=== PATIENT | male | born 1995 | race African-American/Black ===

== ENCOUNTER → 2017-02-16 | Outpatient (CLI) | payer OTHER ==
[2017-02-16 11:53] LABS: EKG EKG PERFORMED
--- NOTE | 2017-02-16 12:03 | XR ---
EXAMINATION TYPE: XR chest 2V DATE OF EXAM: 02/16/2017 COMPARISON: NONE INDICATION: Chest pain TECHNIQUE: Frontal and lateral views of the chest are obtained. FINDINGS: The heart size is normal. The pulmonary vasculature is normal. The lungs are clear. IMPRESSION: 1. No acute pulmonary process.
[2017-02-16 12:07] LABS: Basophils % (A) 1 %; CHCM 34.6; Eosinophils # (A) 0.1 k/uL (0-0.7); Eosinophils % (A) 4 %; HCT 43.4 % (39.0-53.0); HDW 2.53; HGB 15.1 gm/dL (13.0-17.5); Luc % (Auto) 3; Lymphocytes # (A) 1.4 k/uL (1.0-4.8); Lymphocytes % (A) 41 %; MCH 31.1 pg (25.0-35.0); MCHC 34.7 g/dL (31.0-37.0); MCV 89.7 fL (80.0-100.0); Mean Platelet Volume 7.8; Monocytes # (A) 0.2 k/uL (0-1.0); Monocytes % (A) 6 %; Neutrophils # (A) 1.5 k/uL (1.3-7.7); Neutrophils % (A) 46 %; RBC 4.84 m/uL (4.30-5.90); RDW 12.7 % (11.5-15.5); WBC 3.3 k/uL (4.0-11.0); WBC (Perox) 3.31
[2017-02-16 12:20] LABS: ALT 46 U/L (21-72); AST 31 U/L (17-59); Alkaline Phosphatase 82 U/L (38-126); Anion Gap 12 mmol/L; Blood Urea Nitrogen 15 mg/dL (9-20); Calcium 9.9 mg/dL (8.4-10.2); Carbon Dioxide 28 mmol/L (22-30); Chloride 103 mmol/L (98-107); Glucose 90 mg/dL (74-99); Non-African American GFR(MDRD) >60 (>60 ml/min/1.73 sqM); Potassium 3.9 mmol/L (3.5-5.1); Sodium 143 mmol/L (137-145); Total Bilirubin 0.7 mg/dL (0.2-1.3); Total Protein 7.9 g/dL (6.3-8.2)
[2017-02-16 18:03] LABS: Egg White IgE <0.10 kU/L; Peanut IgE 0.53 kU/L; Soybean IgE 0.36 kU/L
[2017-02-16 19:34] LABS: Alternaria alternata IgE <0.10 kU/L; Aspergillus fumagatus IgE <0.10 kU/L; Cladosporian herbarum IgE <0.10 kU/L; Maple (Box Elder) IgE 0.74 kU/L; Orchard Grs(Cocksfoot) IgE 9.44 kU/L
[2017-02-20 06:19] LABS: EBV - EA (IgG) 5.5 U/mL (<9.0); EBV - EBNA (IgG) >600.0 U/mL (<18.0); EBV - VCA (IgG) >750.0 U/mL (<18.0); EBV - VCA IgM <10.0 U/mL (<36.0)
[2017-02-20 08:42] LABS: Strep DNASE B Antibody <86 U/mL (0-260)
== END | disposition home or self-care (01) ==
LOC: LABWHC1 11:34
PROVIDERS: ATTEND Pediatrics Adolescent Medicine
DX: J02.9 Acute pharyngitis, unspecified (principal); R07.1 Chest pain on breathing; R53.83 Other fatigue
CPT/HCPCS: 36415; 71020; 80053; 82785; 85025; 86003; 86060; 86215; 86308; 86663; 86664; 86665; 93005

== ENCOUNTER 2018-02-22 14:40 | Emergency (ER) | payer OTHER ==
--- NOTE | 2018-02-22 15:47 | ED ---
Male Urogenital HPI - General Chief complaint: Urogenital Stated complaint: Testicular pain/CP Time Seen by Provider: 02/22/18 15:05 Source: patient Mode of arrival: ambulatory Limitations: no limitations - History of Present Illness Initial comments: Patient is a 22-year-old male presenting for chest pain and left testicular pain. Patient states that he has been having the chest pain for many weeks and is described as a left-sided sharp pain without radiation. He was supposed to see cardiology but could not do so because of logistical reasons.Pt also denies any prolonged periods of immobility, CA, DVT/PE, estrogen use, or recent surgery. He also admits to left-sided testicular pain for a couple days. He also states that he is sexually active but denies any penile discharge. - Related Data Previous Rx's Medication Instructions Recorded Doxycycline Monohydrate [Monodox] 100 mg PO Q12HR 10 Days #20 cap 02/22/18 Ibuprofen [Motrin] 400 mg PO Q6HR PRN #20 tab 02/22/18 Allergies Allergy/AdvReac Type Severity Reaction Status Date / Time No Known Allergies Allergy Verified 02/22/18 14:56 Review of Systems ROS Statement: Those systems with pertinent positive or pertinent negative responses have been documented in the HPI. Constitutional: Negative for chills, fatigue and fever. HENT: Negative for congestion. Respiratory: Negative for chest tightness, shortness of breath and wheezing. Negative for cough Cardiovascular: Positive for chest pain and negative palpitations. Gastrointestinal: Negative for abdominal pain. Negative for abdominal distention , diarrhea, nausea and vomiting. Genitourinary: Negative for dysuria. Positive for left testicular pain Musculoskeletal: Negative for back pain, neck pain and neck stiffness. Skin: Negative for color change. Neurological: Negative for dizziness, speech difficulty, weakness and light- headedness. Psychiatric/Behavioral: Negative for agitation and confusion. Negative for anxiety ROS Other: All systems not noted in ROS Statement are negative. Past Medical History Past Medical History: No Reported History History of Any Multi-Drug Resistant Organisms: None Reported Past Surgical History: No Surgical Hx Reported Past Psychological History: No Psychological Hx Reported Smoking Status: Current every day smoker Past Alcohol Use History: None Reported Past Drug Use History: None Reported General Exam - General Exam Comments Initial Comments: Constitutional: Pt is oriented to person, place, and time. Pt appears well- developed and well-nourished. No distress. HENT: Head: Normocephalic and atraumatic. Eyes: EOM are normal. Neck: Normal range of motion. Neck supple. Cardiovascular: Normal rate, regular rhythm, S1 normal, S2 normal and normal heart sounds. Exam reveals no gallop and no friction rub. No murmur heard. Pulmonary/Chest: Effort normal and breath sounds normal. No tachypnea and no bradypnea. No respiratory distress. No wheezes or rales noted. Abdominal: Soft. Bowel sounds are normal. Pt exhibits no shifting dullness, no distension, no pulsatile liver, no fluid wave, no abdominal bruit and no ascites. There is no tenderness. There is no rigidity, no rebound, no guarding, no tenderness at McBurney's point and negative Clement's sign. Musculoskeletal: Normal range of motion. : Negative for inguinal hernia. Mild tenderness in the left epididymis with no focal mass palpated. Normal lie of the testicle with no tenderness of the lower testicle. Neurological: Pt is alert and oriented to person, place, and time. No cranial nerve deficit. Skin: Skin is warm and dry. No rash noted. Pt is not diaphoretic. No erythema. No pallor. Psychiatric: Pt has a normal mood and affect. Pt behavior is normal. Thought content normal. Limitations: no limitations Course Vital Signs 02/22/18 14:53 Temperature 98.2 F Pulse Rate 63 Respiratory 16 Rate Blood Pressure 130/72 O2 Sat by Pulse 100 Oximetry Medical Decision Making - Medical Decision Making Urinalysis was negative for infection and ultrasound testicle was performed and showed bilateral testicular blood flow. There is no evidence of mass and it is unclear whether the patient's symptoms are secondary to unfound cyst or if this is epididymitis. Nonetheless, the patient will be treated for epididymitis and was given 250 mg of Rocephin as well as 10 day course of doxycycline. Additionally, in regards to the chest pain, the chest x-ray was noted to not show any acute infiltrate and EKG showed no significant changes compared to old ones. D-dimer and evaluation for pulmonary embolism was not completed as the patient was PERC negative. Explained all labs and diagnostic test results and that we will discharge the patient home and patient is to follow up with PCP in 1-2 days and return to the ED if symptoms worsen. Pt is agreeable to plan. - Lab Data Lab Results 02/22/18 Range/Units 14:30 Urine Color Light Yellow Urine Appearance Clear (Clear) Urine pH 7.5 (5.0-8.0) Ur Specific [place] 1.007 (1.001-1.035) Urine Protein Negative (Negative) Urine Glucose (UA) Negative (Negative) Urine Ketones Negative (Negative) Urine Blood Negative (Negative) Urine Nitrite Negative (Negative) Urine Bilirubin Negative (Negative) Urine Urobilinogen <2.0 (<2.0) mg/dL Ur Leukocyte Esterase Negative (Negative) - EKG Data EKG Comments: EKG shows rate of 62 bpm and normal sinus rhythm. VT interval 156, QRS 88, QTC 395. There is no significant ST depressions or elevations. There is no T-wave inversions noted as well. Disposition Clinical Impression: Left testicular pain, Chest pain, Epididymitis Disposition: HOME SELF-CARE Condition: Good Instructions: Epididymitis (ED) Prescriptions: Doxycycline Monohydrate [Monodox] 100 mg PO Q12HR 10 Days #20 cap Ibuprofen [Motrin] 400 mg PO Q6HR PRN #20 tab PRN Reason: Pain Is patient prescribed a controlled substance at d/c from ED?: No Referrals: Jazlyn Loredo MD [Primary Care Provider] - 1-2 days Time of Disposition: 17:02
[2018-02-22 15:51] LABS: Appearance,Urine Clear (Clear); Bilirubin,Urine Negative (Negative); Blood,Urine Negative (Negative); Color,Urine Light Yellow; Glucose,Urine (UA) Negative (Negative); Ketones,Urine Negative (Negative); Leukocyte Esterase,Urine Negative (Negative); Nitrite,Urine Negative (Negative); PH, Urine 7.5 (5.0-8.0); Protein,Urine Negative (Negative); Specific Gravity,Urine 1.007 (1.001-1.035); Urobilinogen,Urine <2.0 mg/dL (<2.0)
--- NOTE | 2018-02-22 15:51 | XR ---
EXAMINATION TYPE: XR chest 2V DATE OF EXAM: 02/22/2018 COMPARISON: 02/16/2017 HISTORY: Intermittent chest pain. TECHNIQUE: Frontal and lateral views of the chest are obtained. FINDINGS: There is no focal air space opacity, pleural effusion, or pneumothorax seen. The cardiac silhouette size is within normal limits. The osseous structures are intact. IMPRESSION: No acute cardiopulmonary process.
--- NOTE | 2018-02-22 16:26 | US ---
EXAMINATION TYPE: US scrotum with doppler. Grayscale and color Doppler Duplex imaging performed of rick saini scrotum. DATE OF EXAM: 02/22/2018 COMPARISON: NONE CLINICAL HISTORY: Left testicular pain for 4 days. EXAM MEASUREMENTS: TESTICLES: Right Testicle: 1.0 cm Left Testicle: 1.0 cm EPIDIDYMIS HEAD: Right Epididymis: 4.1 x 2.0 x 2.8 cm Left Epididymis: 3.7 x 2.2 x 2.5 cm Doppler performed to assess for testicular vascularity; good bilateral color flow and waveforms are s een. There is no evidence of testicular torsion. Presence of hydroceles: no Presence of varicoceles: no Patient lifted up testicle to point out palpable area of pain once relaxed technologist believes this is just part of the epididymal tail. IMPRESSION: 1. No current evidence of testicular torsion. 2. The left palpable abnormality appears to communicate with the remainder of the epididymis and is t hought to represent a normal epididymal tail.
[2018-02-22] MEDS ORDERED: cefTRIAXone 250 MG VIAL IM STA (17:00)
[2018-02-22 17:38] VITALS: BP 122/56; PULSE 69; RESP 20; TEMP 98.3
== END 2018-02-22 17:36 | disposition home or self-care (01) ==
LOC: EC 14:40
DX: N45.1 Epididymitis (principal); R07.9 Chest pain, unspecified; F17.200 Nicotine dependence, unspecified, uncomplicated
CPT/HCPCS: 93005; 81003; 71046; 93975; 76870; 99285; 96372; J0696

== ENCOUNTER 2020-07-07 21:29 | Emergency (ER) | payer OTHER ==
[2020-07-07 21:32] VITALS: BP 114/68; PULSE 83; RESP 16; TEMP 99.3
[2020-07-07] MEDS ORDERED: OFLOXACIN 0.3% OPHTH DROPS 5 ML BOTTLE RIGHT EAR STA (21:45)
[2020-07-07] MEDS ORDERED: KETOROLAC 15 MG/ML 1 ML VIAL IM STA (21:45)
[2020-07-07] MEDS ORDERED: AMOXICILLIN 500MG STARTER PACK 3 CAP BTL PO STA (21:45)
--- NOTE | 2020-07-07 21:47 | ED ---
General Adult HPI - General Chief complaint: ENT Stated complaint: Right ear pain Time Seen by Provider: 07/07/20 21:38 Source: patient Mode of arrival: ambulatory Limitations: no limitations - History of Present Illness Initial comments: 24-year-old male patient presents to the emergency department today for evaluation of right ear pain and tenderness. Patient states he's had symptoms for the last 3 days. States his symptoms are worsening states that he came in to be evaluated. Patient denies taking any pain medication for his symptoms. Denies history of ear problems per denies history of diabetes. He denies any drainage from the ear. Denies nasal congestion or upper respiratory symptoms. States he is otherwise healthy. - Related Data Previous Rx's Medication Instructions Recorded Doxycycline Monohydrate [Monodox] 100 mg PO Q12HR 10 Days #20 cap 02/22/18 Ibuprofen [Motrin] 400 mg PO Q6HR PRN #20 tab 02/22/18 Amoxicillin 875 mg PO Q12HR #20 tablet 07/07/20 Ibuprofen [Motrin] 600 mg PO Q8HR PRN #30 tab 07/07/20 Allergies Allergy/AdvReac Type Severity Reaction Status Date / Time bee venom protein (honey bee) Allergy Anaphylaxis Verified 07/07/20 21:33 shellfish derived [Shellfish] Allergy Anaphylaxis Verified 07/07/20 21:33 Review of Systems ROS Statement: Those systems with pertinent positive or pertinent negative responses have been documented in the HPI. ROS Other: All systems not noted in ROS Statement are negative. Past Medical History Past Medical History: No Reported History History of Any Multi-Drug Resistant Organisms: None Reported Past Surgical History: No Surgical Hx Reported Past Psychological History: No Psychological Hx Reported Smoking Status: Never smoker Past Alcohol Use History: None Reported Past Drug Use History: None Reported General Exam Limitations: no limitations General appearance: alert, in no apparent distress, other (Physical well- developed, well-nourished adult male patient in no acute distress. Vital signs upon presentation are temperature 99.3F, pulse 83, respirations 16, blood pressure 114/68, pulse ox 100% on room air.) Eye exam: Present: normal appearance, PERRL, EOMI. Absent: scleral icterus, conjunctival injection, periorbital swelling ENT exam: Present: normal oropharynx, mucous membranes moist. Absent: normal exam, TM's normal bilaterally (Right tympanic membrane is bulging, evidence for purulent effusion.), normal external ear exam (External ear tenderness) Neck exam: Present: normal inspection. Absent: tenderness, meningismus, lymphadenopathy Respiratory exam: Present: normal lung sounds bilaterally. Absent: respiratory distress, wheezes, rales, rhonchi, stridor Cardiovascular Exam: Present: regular rate, normal rhythm, normal heart sounds. Absent: systolic murmur, diastolic murmur, rubs, gallop, clicks Neurological exam: Present: alert, oriented X3, CN II-XII intact Psychiatric exam: Present: normal affect, normal mood Skin exam: Present: warm, dry, intact, normal color. Absent: rash Course Vital Signs 07/07/20 21:29 Temperature 99.3 F Pulse Rate 83 Respiratory 16 Rate Blood Pressure 114/68 O2 Sat by Pulse 100 Oximetry Medical Decision Making - Medical Decision Making 24-year-old male patient presented to the emergency department today for evaluation of right ear pain for the last 3 days. Physical examination did reveal evidence for purulent effusion. Also did have significant external ear tenderness over the did start ofloxacin drops as well as oral amoxicillin. He'll be discharged to follow-up with his primary care physician for recheck in 1-2 days. Return parameters were discussed in detail. He verbalizes understanding and agrees with this plan. Disposition Clinical Impression: Right otitis media Disposition: HOME SELF-CARE Condition: Good Instructions (If sedation given, give patient instructions): Ear Infection (ED), Earache (ED) Additional Instructions: Complete antibiotic prescription in full. Take pain medication as directed. Do 5 drops to the right ear twice daily. Follow-up through primary care physician for recheck in 1-2 days. Return to the emergency department immediately for any new, worsening, or concerning symptoms. Prescriptions: Amoxicillin 875 mg PO Q12HR #20 tablet Ibuprofen [Motrin] 600 mg PO Q8HR PRN #30 tab PRN Reason: Pain Is patient prescribed a controlled substance at d/c from ED?: No Referrals: Jazlyn Loredo MD [Primary Care Provider] - 1-2 days Time of Disposition: 21:47
== END 2020-07-07 22:31 | disposition home or self-care (01) ==
LOC: EC 21:29
DX: H66.91 Otitis media, unspecified, right ear (principal); Z91.013 Allergy to seafood; Z91.030 Bee allergy status
CPT/HCPCS: 99282; 96372; J1885

== ENCOUNTER 2021-11-29 00:44 | Emergency (ER) | payer SELFPAY ==
[2021-11-29 00:49] VITALS: BP 142/89; PULSE 86; RESP 18; TEMP 98.7
--- NOTE | 2021-11-29 01:21 | XR ---
EXAMINATION TYPE: XR chest 2V DATE OF EXAM: 11/29/2021 COMPARISON: 02/22/2018 HISTORY: Chest pain TECHNIQUE: FINDINGS: Heart and mediastinum are normal. Lungs are clear. Diaphragm is normal. Bony thorax appears normal. IMPRESSION: Normal chest. No change.
== END 2021-11-29 01:30 | disposition left against medical advice (07) ==
LOC: EC 00:44
DX: Z53.21 Procedure and treatment not carried out due to patient leaving prior to being seen by health care provider (principal); R06.02 Shortness of breath
CPT/HCPCS: 71046; 99499

== ENCOUNTER 2023-04-13 17:01 | Emergency (ER) | payer OTHER ==
--- NOTE | 2023-04-13 18:49 | ED ---
General Adult HPI - General Chief complaint: Dizziness Stated complaint: LIGHTHEADED,L ARM SPOT Time Seen by Provider: 04/13/23 17:17 Source: patient Mode of arrival: ambulatory Limitations: no limitations - History of Present Illness Initial comments: This patient is a 27-year-old man who presents 7 evaluation of feeling of lightheadedness and fatigue. He states that he felt like he was going to pass out. The patient had to sit 4. And then the symptoms resolved. I he did not note any associated fever or chills. No chest pain, dyspnea, or dyspnea. No nausea, vomiting, diarrhea. Patient was concerned because he had noticed states an area of redness and swelling to his left upper arm. He states that when he first saw it looked like a bruise but he did not have any injury in that area. The patient states that he feels back at baseline now. -: hour(s) Severity scale (1-10): 0 Consistency: now resolved Improves with: none Worsens with: none Treatments Prior to Arrival: none - Related Data Previous Rx's Medication Instructions Recorded Doxycycline Monohydrate [Monodox] 100 mg PO Q12HR 10 Days #20 cap 02/22/18 Ibuprofen [Motrin] 400 mg PO Q6HR PRN #20 tab 02/22/18 Amoxicillin 875 mg PO Q12HR #20 tablet 07/07/20 Ibuprofen [Motrin] 600 mg PO Q8HR PRN #30 tab 07/07/20 Allergies Allergy/AdvReac Type Severity Reaction Status Date / Time bee venom protein (honey bee) Allergy Anaphylaxis Verified 04/13/23 17:08 shellfish derived [Shellfish] Allergy Anaphylaxis Verified 04/13/23 17:08 Review of Systems ROS Statement: Those systems with pertinent positive or pertinent negative responses have been documented in the HPI. ROS Other: All systems not noted in ROS Statement are negative. Constitutional: Denies: fever, chills, weakness Eyes: Denies: vision change Respiratory: Denies: cough, dyspnea Cardiovascular: Denies: chest pain, palpitations, edema, syncope Gastrointestinal: Denies: abdominal pain, nausea, vomiting, diarrhea Genitourinary: Denies: dysuria, hematuria Musculoskeletal: Denies: back pain Skin: Reports: as per HPI, change in color. Denies: rash Neurological: Denies: headache, weakness, numbness, paresthesias, confusion Past Medical History Past Medical History: No Reported History History of Any Multi-Drug Resistant Organisms: None Reported Past Surgical History: No Surgical Hx Reported Past Psychological History: No Psychological Hx Reported Smoking Status: Never smoker Past Alcohol Use History: None Reported Past Drug Use History: Marijuana General Exam Limitations: no limitations General appearance: alert, in no apparent distress Head exam: Present: atraumatic, normocephalic Eye exam: Present: normal appearance. Absent: scleral icterus, conjunctival injection ENT exam: Present: normal oropharynx Neck exam: Present: normal inspection Respiratory exam: Present: normal lung sounds bilaterally. Absent: respiratory distress, wheezes, rales, rhonchi, stridor Cardiovascular Exam: Present: regular rate, normal rhythm, normal heart sounds. Absent: systolic murmur, diastolic murmur, rubs, gallop GI/Abdominal exam: Present: soft. Absent: distended, tenderness, guarding, rebound, rigid, mass Extremities exam: Present: normal inspection, normal capillary refill, other (The patient does have approximately 6 cm area of what appears to be contusion to the left upper arm area. No palpable mass or cord. There is minimal tenderness.). Absent: pedal edema, calf tenderness Back exam: Present: normal inspection. Absent: CVA tenderness (R), CVA tenderness (L), vertebral tenderness Neurological exam: Present: alert, CN II-XII intact. Absent: motor sensory deficit Skin exam: Present: warm, dry, intact, normal color. Absent: rash Course Vital Signs 04/13/23 04/13/23 17:05 20:19 Temperature 97.7 F 98.0 F Pulse Rate 58 L 74 Respiratory 20 17 Rate Blood Pressure 134/88 124/72 O2 Sat by Pulse 100 99 Oximetry EKG Findings - EKG Results: EKG: interpreted by ERMD, sinus rhythm, normal axis, normal QRS, normal ST/T EKG shows: bradycardia (Rate 52 bpm) Medical Decision Making - Medical Decision Making Was pt. sent in by a medical professional or institution (, OSCAR, TUBE MACHINE OPERATOR, urgent care, hospital, or assisted...) When possible be specific @ -[No] Did you speak to anyone other than the patient for history (EMS, parent, family, police, friend...)? What history was obtained from this source @ -[No] Did you review nursing and triage notes (agree or disagree)? Why? @ -[I reviewed and agree with nursing and triage notes] Were old charts reviewed (outside hosp., previous admission, EMS record, old EKG, old radiological studies, urgent care reports/EKG's, assisted records)? Report findings @ -[No old charts were reviewed] Differential Diagnosis (chest pain, altered mental status, abdominal pain women, abdominal pain men, vaginal bleeding, weakness, fever, dyspnea, syncope, headache, dizziness, GI bleed, back pain, seizure, CVA, palpatations, mental health, musculoskeletal)? @ -[Differential Near syncope: Valvular disease, hypertrophic cardiomyopathy, pulmonary embolism, tamponade, tachycardia, bradycardia, MD, hypovolemia, hemorrhage, dissection, anemia, intracranial hemorrhage, seizure, hypoglycemia, carbon monoxide poisoning, this is not meant to be an all-inclusive list. EKG interpreted by me (3pts min.). @ -[As above] X-rays interpreted by me (1pt min.). @ -[None done] CT interpreted by me (1pt min.). @ -[None done] U/S interpreted by me (1pt. min.). @ -[None done] What testing was considered but not performed or refused? (CT, X-rays, U/S, labs)? Why? @ -[None] What meds were considered but not given or refused? Why? @ -[None] Did you discuss the management of the patient with other professionals (professionals i.e. , PA, TUBE MACHINE OPERATOR, lab, RT, psych nurse, social work instructor, form building supervisor, teacher, product safety officer, window caser)? Give summary @ -[No] Was smoking cessation discussed for >3mins.? @ -[No] Was critical care preformed (if so, how long)? @ -[No] Were there social determinants of health that impacted care today? How? (Homelessness, low income, unemployed, alcoholism, drug addiction, transportation, low edu. Level, literacy, decrease access to med. care, skilled nursing, rehab)? @ -[No] Was there de-escalation of care discussed even if they declined (Discuss DNR or withdrawal of care, Hospice)? DNR status @ -[No] What co-morbidities impacted this encounter? (DM, HTN, Smoking, COPD, CAD, Cancer, CVA, ARF, Chemo, Hep., AIDS, mental health diagnosis, sleep apnea, morbid obesity)? @ -[None] Was patient admitted / discharged? Hospital course, mention meds given and route, prescriptions, significant lab abnormalities, going to OR and other pertinent info. @ -[The patient is 27-year-old man with near syncopal episode and concerns also related to left upper arm, which appears to be contusion without recalling any injury to the area. The patient's history and physical are benign. The workup here is unremarkable. Given the arm finding we did perform ultrasound which does not identify any other abnormality. The patient will have close follow-up. We discussed further care as well as return parameters. Undiagnosed new problem with uncertain prognosis? @ -[No] Drug Therapy requiring intensive monitoring for toxicity (Heparin, Nitro, Insu francis, Cardizem)? @ -[No] Were any procedures done? @ -[No] Diagnosis/symptom? @ -[Acute near syncopal episode Acute, or Chronic, or Acute on Chronic? @ -[default] Uncomplicated (without systemic symptoms) or Complicated (systemic symptoms)? @ -[Uncomplicated Side effects of treatment? @ -[No] Exacerbation, Progression, or Severe Exacerbation? @ -[No] Poses a threat to life or bodily function? How? (Chest pain, USA, MD, pneumonia, PE, COPD, DKA, ARF, appy, cholecystitis, CVA, Diverticulitis, Homicidal, Suicidal, threat to staff... and all critical care pts) @ -[No] - Lab Data Result diagrams: 04/13/23 18:27 04/13/23 18:27 Lab Results 04/13/23 04/13/23 04/13/23 Range/Units 18:27 18:27 18:31 WBC 4.3 (3.8-10.6) k/uL RBC 4.74 (4.30-5.90) m/uL Hgb 14.6 (13.0-17.5) gm/dL Hct 43.0 (39.0-53.0) % MCV 90.8 (80.0-100.0) fL MCH 30.8 (25.0-35.0) pg MCHC 33.9 (31.0-37.0) g/dL RDW 12.4 (11.5-15.5) % Plt Count 160 (150-450) k/uL MPV 8.8 Neutrophils % 53 % Lymphocytes % 35 % Monocytes % 5 % Eosinophils % 5 % Basophils % 1 % Neutrophils # 2.3 (1.3-7.7) k/uL Lymphocytes # 1.5 (1.0-4.8) k/uL Monocytes # 0.2 (0-1.0) k/uL Eosinophils # 0.2 (0-0.7) k/uL Basophils # 0.0 (0-0.2) k/uL Sodium 137 (137-145) mmol/L Potassium 4.0 (3.5-5.1) mmol/L Chloride 103 (98-107) mmol/L Carbon Dioxide 26 (22-30) mmol/L Anion Gap 8 mmol/L BUN 13 (9-20) mg/dL Creatinine 0.90 (0.66-1.25) mg/dL Est GFR (CKD-EPI)AfAm >90 (>60 ml/min/1.73 sqM) Est GFR (CKD-EPI)NonAf >90 (>60 ml/min/1.73 sqM) Glucose 95 (74-99) mg/dL Calcium 9.5 (8.4-10.2) mg/dL Total Bilirubin 0.6 (0.2-1.3) mg/dL AST 29 (17-59) U/L ALT 30 (4-49) U/L Alkaline Phosphatase 58 (38-126) U/L Total Protein 7.8 (6.3-8.2) g/dL Albumin 4.6 (3.5-5.0) g/dL Influenza Type A (PCR) Not Detected (Not Detectd) Influenza Type B (PCR) Not Detected (Not Detectd) RSV (PCR) Not Detected (Not Detectd) SARS-CoV-2 (PCR) Not Detected (Not Detectd) Disposition Clinical Impression: Near syncope Disposition: HOME SELF-CARE Condition: Good Instructions (If sedation given, give patient instructions): Near Syncope (ED) Is patient prescribed a controlled substance at d/c from ED?: No Referrals: None,Stated [Primary Care Provider] - 1-2 days Navin Coffey MD [STAFF PHYSICIAN] - 1-2 days
[2023-04-13 18:52] LABS: Basophils % (A) 1 %; Eosinophils # (A) 0.2 k/uL (0-0.7); Eosinophils % (A) 5 %; HGB 14.6 gm/dL (13.0-17.5); Lymphocytes # (A) 1.5 k/uL (1.0-4.8); Lymphocytes % (A) 35 %; MCH 30.8 pg (25.0-35.0); MCHC 33.9 g/dL (31.0-37.0); MCV 90.8 fL (80.0-100.0); Mean Platelet Volume 8.8; Monocytes # (A) 0.2 k/uL (0-1.0); Monocytes % (A) 5 %; Neutrophils # (A) 2.3 k/uL (1.3-7.7); Neutrophils % (A) 53 %; Platelet Count 160 k/uL (150-450); RBC 4.74 m/uL (4.30-5.90); RDW 12.4 % (11.5-15.5); WBC 4.3 k/uL (3.8-10.6)
[2023-04-13 19:07] LABS: ALT 30 U/L (4-49); AST 29 U/L (17-59); African American GFR (CKD) >90 (>60 ml/min/1.73 sqM); Albumin 4.6 g/dL (3.5-5.0); Alkaline Phosphatase 58 U/L (38-126); Anion Gap 8 mmol/L; Blood Urea Nitrogen 13 mg/dL (9-20); Calcium 9.5 mg/dL (8.4-10.2); Carbon Dioxide 26 mmol/L (22-30); Chloride 103 mmol/L (98-107); Glucose 95 mg/dL (74-99); Non-African American GFR(CKD) >90 (>60 ml/min/1.73 sqM); Sodium 137 mmol/L (137-145); Total Bilirubin 0.6 mg/dL (0.2-1.3); Total Protein 7.8 g/dL (6.3-8.2)
--- NOTE | 2023-04-13 19:43 | US ---
EXAMINATION TYPE: US extremity nonvasc mass LT DATE OF EXAM: 04/13/2023 COMPARISON: NONE CLINICAL INDICATION: Male, 27 years old with history of L arm swelling; small area of redness left up per arm TECHNIQUE AND FINDINGS: Solar Photovoltaic Systems Engineer notes: Scanned within area of concern, medial left upper arm. No ultrasound evidence of discrete abnormality at this time. Underlying musculature shows normal homogeneous appearance. The subcutaneous adipose layer appears no rmal. No solid or cystic lesion. IMPRESSION: Targeted scanning along the medial aspect of the left upper arm at the patient's area of swelling and redness. No discrete abnormality in the superficial soft tissues identified by the candle cutter.
[2023-04-13 20:23] VITALS: BP 124/72; PULSE 74; RESP 17; TEMP 98
== END 2023-04-13 20:23 | disposition home or self-care (01) ==
LOC: EC 17:01
DX: S40.022A Contusion of left upper arm, initial encounter (principal); R55 Syncope and collapse; F12.90 Cannabis use, unspecified, uncomplicated; Z20.822 Contact with and (suspected) exposure to COVID-19; Z91.030 Bee allergy status; Z91.013 Allergy to seafood; X58.XXXA Exposure to other specified factors, initial encounter
CPT/HCPCS: 36415; 80053; 85025; 87636; 93005; 99284